=== PATIENT | female | born 1985 | race Caucasian/White ===

== ENCOUNTER 2017-06-12 07:00 | Inpatient (IN) | payer OTHER ==
[2017-06-12 08:24] LABS: BASOPHIL 0.4 % (0-2.0); EOSINOPHIL 0.4 % (0-4.5); MCH 28.5 pg (25.7-33.7); MEAN CELL VOLUME 86.6 fl (80-96); MEAN PLT VOLUME 8.6 fl (7.5-11.1); NEUTROPHILS 84.2 % (42.8-82.8); PLATELET COUNT 207 K/MM3 (134-434); RDW 18.8 % (11.6-15.6); WHITE BLOOD COUNT 11.1 K/mm3 (4.0-10.0)
--- NOTE | 2017-06-12 08:35 | HP ---
Past Medical History - Primary Care Physician PCP:: Malcolm Holder - Admission Chief Complaint: 39.1 weeks, labor History of Present Illness: 32 yo f . edc by sono 06/17/17 c/o contractions. no rom,no bleeding, cx 6 cm .80 vx -2 mi, fhr cat 1, contraction irregular History Source: Patient Limitations to Obtaining History: Language Barrier - Past Medical History ...: 2 ...Para: 1 ...Term: 1 ...LMP: 09/04/16 ... Weeks Gestation by Dates: 40.1 ...EDC by Dates: 06/11/17 ...EDC by Sono: 06/18/17 - Past Surgical History Past Surgical History: Yes: None Hx Myomectomy: No Hx Transabdominal Cerclage: No - Smoking History Smoking history: Never smoked Have you smoked in the past 12 months: No - Alcohol/Substance Use Hx Alcohol Use: No History of Substance Use: reports: None - Social History Usual Living Arrangement: Yes: With Spouse History of Recent Travel: No Home Medications - Allergies Allergies/Adverse Reactions: Allergies Allergy/AdvReac Type Severity Reaction Status Date / Time No Known Allergies Allergy Verified 05/28/17 02:19 - Home Medications Home Medications: Ambulatory Orders Vitamins (Sjr) - 1 tab PO DAILY 06/04/14 Review of Systems - Review of Systems Constitutional: reports: No Symptoms Eyes: reports: No Symptoms HENT: reports: No Symptoms Neck: reports: No Symptoms Cardiovascular: reports: No Symptoms Respiratory: reports: No Symptoms Gastrointestinal: reports: No Symptoms Genitourinary: reports: No Symptoms Breasts: reports: No Symptoms Reported Musculoskeletal: reports: No Symptoms Integumentary: reports: No Symptoms Neurological: reports: No Symptoms Endocrine: reports: No Symptoms Hematology/Lymphatic: reports: No Symptoms Psychiatric: reports: No Symptoms Physical Exam - Maternity Constitutional: Yes: Well Nourished, No Distress, Calm Eyes: Yes: WNL, Conjunctiva Clear, EOM Intact HENT: Yes: WNL, Atraumatic, Normocephalic Neck: Yes: WNL, Supple, Trachea Midline Cardiovascular: Yes: WNL, Regular Rate and Rhythm Breast(s): Yes: WNL - Abdominal Exam/OB Fundal Height: 40 Number of Fetuses: Single Presentation: Vertex Contractions: Yes Regularity: Irregular Intensity: Mod/Strong Monitor Mode: External Heart Rate Location: [facility] Category: I Accelerations: Uniform Decelerations: None - Vaginal Exam/OB Vaginal Bleediing: Bloody Show Speculum Exam: No Dilatation (cm): 6 cm Effacement (%): 80 Amniotic Membrane Status: Intact Presentation: Vertex/Position Station: -2 - Physical Exam Musculoskeletal: Yes: WNL Extremities: Yes: WNL Edema: Yes Edema: LLE: Trace, RLE: Trace Deep Tendon Reflex Grade: Normal +2 Psychiatric: Yes: WNL - Labs Lab Results: CBC, BMP 06/12/17 08:05 Hemorrhage Risk Assessment - Risk Factors Medium Risk Factors: Yes: None High Risk Factors: Yes: None Risk Score: 1 Risk Level: Medium Risk Problem List - Problems (1) 39 weeks gestation of Code(s): Z3A.39 - 39 WEEKS GESTATION OF (2) Labor established Code(s): BGC0078 - Assessment/Plan admit, fhm, ,irregular contraction, pitocin advised , rba discussed, pain management
[2017-06-12] MEDS ORDERED: PROMETHAZINE HCL 25 MG/1 ML VIAL IVPUSH ONE (08:36)
[2017-06-12] MEDS ORDERED: BUTORPHANOL TARTRATE 1 MG/ML VIAL IVPUSH ONE (08:36)
[2017-06-12 08:42] LABS: INR 0.88 (0.82-1.09); PROTHROMBIN TIME (PATIENT) 9.9 SEC (9.98-11.88)
[2017-06-12 08:43] VITALS: BMI 30.6
[2017-06-12 08:45] LABS: ACTIVATED PTT 32.4 SECONDS (26.9-34.4)
[2017-06-12] MEDS ORDERED: DEXTROSE 5%-LACTATED RINGERS 1,000 ML IV SCH (08:45)
[2017-06-12 08:48] LABS: ANION GAP 9 (8-16); CALCIUM 8.3 mg/dL (8.5-10.1); CO2 21 mmol/L (21-32); CREATININE 0.3 mg/dL (0.55-1.02); GLUCOSE,RANDOM 103 mg/dL (74-106)
[2017-06-12] MEDS ORDERED: OXYTOCIN 15 UNITS/ LR 250 ML 250 ML IVPB SCH (09:00)
[2017-06-12] MEDS ORDERED: BISACODYL 10 MG SUPP.RECT RC PRN (11:58)
[2017-06-12] MEDS ORDERED: BENZOCAINE 28 GM HEMORRHOIDAL OINTMENT TP PRN (11:58)
[2017-06-12] MEDS ORDERED: WITCH HAZEL 50% (TUCKS) 40 PAD/JAR PAD TP PRN (11:58)
[2017-06-12] MEDS ORDERED: METHYLERGONOVINE MALEATE 0.2 MG/1 ML AMP IM PRN (11:58)
[2017-06-12] MEDS ORDERED: oxyCODONE HCL 5 MG TABLET PO PRN (11:58)
[2017-06-12] MEDS ORDERED: BENZOCAINE 20% 57 GM BOTTLE TP PRN (11:58)
[2017-06-12] MEDS ORDERED: ACETAMINOPHEN 325 MG TABLET (FP) PO PRN (11:58)
[2017-06-12] MEDS ORDERED: IBUPROFEN 600 MG TABLET (FP) PO PRN (11:58)
[2017-06-12] MEDS ORDERED: D5W-LR W/ 20 UNITS OXYTOCIN 1,000 ML IV SCH (12:00)
[2017-06-12] MEDS: FERROUS SO4 325 MG TABLET (FP) PO SCH (21:29)
--- NOTE | 2017-06-13 08:12 | PN ---
Post Progress Note Type of Delivery: Vital Signs: Vital Signs Temperature 98.7 F 06/13/17 05:17 Pulse Rate 76 06/13/17 05:17 Respiratory Rate 18 06/13/17 05:17 Blood Pressure 103/59 06/13/17 05:17 O2 Sat by Pulse Oximetry (%) 100 06/12/17 12:45 Breast Exam: Yes: Soft Uterus: Yes: Fundus Firm Abdomen/GI: Yes: Abdomen soft Lochia: Yes: Rubra Lochia, amount: Small Extremities: Yes: Calves non-tender Perineum: Yes: Intact Activity: Ambulating - Labs Labs: CBC WBC 11.1 K/mm3 (4.0-10.0) H 06/12/17 08:05 RBC 4.58 M/mm3 (3.60-5.2) D 06/12/17 08:05 Hgb 13.1 GM/dL (10.7-15.3) D 06/12/17 08:05 Hct 39.6 % (32.4-45.2) D 06/12/17 08:05 MCV 86.6 fl (80-96) 06/12/17 08:05 MCH 28.5 pg (25.7-33.7) 06/12/17 08:05 MCHC 33.0 g/dl (32.0-36.0) 06/12/17 08:05 RDW 18.8 % (11.6-15.6) H D 06/12/17 08:05 Plt Count 207 K/MM3 (134-434) D 06/12/17 08:05 MPV 8.6 fl (7.5-11.1) 06/12/17 08:05 Neutrophils % 84.2 % (42.8-82.8) H 06/12/17 08:05 Lymphocytes % 9.7 % (8-40) D 06/12/17 08:05 Monocytes % 5.3 % (3.8-10.2) 06/12/17 08:05 Eosinophils % 0.4 % (0-4.5) 06/12/17 08:05 Basophils % 0.4 % (0-2.0) 06/12/17 08:05 Assessment/Plan doing well cbc reg diet oob
[2017-06-13 08:15] LABS: BASOPHIL 0.4 % (0-2.0); EOSINOPHIL 1.1 % (0-4.5); MCH 29.2 pg (25.7-33.7); MCHC 33.7 g/dl (32.0-36.0); MEAN CELL VOLUME 86.5 fl (80-96); MEAN PLT VOLUME 8.6 fl (7.5-11.1); NEUTROPHILS 76.4 % (42.8-82.8); PLATELET COUNT 183 K/MM3 (134-434); RDW 19.1 % (11.6-15.6); WHITE BLOOD COUNT 10.6 K/mm3 (4.0-10.0)
[2017-06-13] MEDS ORDERED: FLU VACC QS2017-18 36MOS UP/PF 60 MCG/0.5 ML SYRINGE IM ONE (10:00)
[2017-06-13] MEDS ORDERED: DIPHTH,PERTUSS(ACELL),TET 0.5 ML DISP.SYRIN IM ONE (10:00)
[2017-06-13] MEDS: PRENATAL VITAMINS W/ FOLIC ACID TABLET (FP) PO SCH (10:03)
[2017-06-13] MEDS: FERROUS SO4 325 MG TABLET (FP) PO SCH ×2 (10:03→21:06)
[2017-06-13] MEDS ORDERED: SENNOSIDES/DOCUSATE COMBO (SENNA PLUS) TABLET (UD) PO PRN (22:00)
[2017-06-14] MEDS: PRENATAL VITAMINS W/ FOLIC ACID TABLET (FP) PO SCH (08:59)
[2017-06-14] MEDS: FERROUS SO4 325 MG TABLET (FP) PO SCH (08:59)
[2017-06-14 09:33] VITALS: BP 105/70; PULSE 67; TEMP 98.7
== END 2017-06-14 13:00 | disposition home or self-care (01) | DRG 560 ==
LOC: JDEL 07:00 → JLDR 07:20 → J3W 13:40
PROVIDERS: ADMIT Obstetrics & Gynecology; ATTEND Obstetrics & Gynecology
PROC: 10E0XZZ Delivery of Products of Conception, External Approach (ICD-10-PCS; principal; 2017-06-12)
DX: O80 Encounter for full-term uncomplicated delivery (principal); Z3A.39 39 weeks gestation of pregnancy; Z37.0 Single live birth
CPT/HCPCS: 36415; 59409; 80048; 85025; 85610; 85730; 86593; 86850; 86900; 86901; 90686; 90715; G0008

== ENCOUNTER 2018-04-27 16:34 | Emergency (ER) | payer OTHER ==
[2018-04-27 16:43] VITALS: BP 117/77; PULSE 55; TEMP 98.7; BMI 23.6
[2018-04-27] MEDS ORDERED: DEXAMETHASONE SOD PHOSPHATE 10 MG/1 ML VIAL IM ONE (17:49)
[2018-04-27] MEDS ORDERED: DEXAMETHASONE SOD PHOSPHATE 10 MG/1 ML VIAL ONE (17:52)
--- NOTE | 2018-04-27 17:54 | PDOC ---
History of Present Illness - General Chief Complaint: Rash Stated Complaint: Rash Time Seen by Provider: 04/27/18 17:38 History Source: Patient Exam Limitations: No Limitations - History of Present Illness Initial Comments: 04/27/18 17:49 Pruritic grouped lesions noted to right upper outer arm, with appearance like poison sameera. Has been using Benadryl cream with minimal resolved. Denies fever, denies other places of outbreak, no other family member has. Denies any facial swelling tongue swelling breathing problems any signs of infection. Timing/Duration: reports: just prior to arrival, getting worse Severity: Yes: mild, moderate Location: reports: extremities (right upper arm) Respiratory Risk Factors: reports: no cause identified Modifying Factors: improves with: scratching, other (Benadryl cream) Associated Symptoms: reports: denies symptoms Past History - Travel Traveled outside of the country in the last 30 days: No Close contact w/someone who was outside of country & ill: No - Past Medical History Allergies/Adverse Reactions: Allergies Allergy/AdvReac Type Severity Reaction Status Date / Time No Known Allergies Allergy Verified 04/27/18 16:42 Home Medications: Ambulatory Orders NK [No Known Home Medication] 04/27/18 Asthma: No Cancer: No Cardiac Disorders: No COPD: No Diabetes: No HTN: No Seizures: No Thyroid Disease: No - Suicide/Smoking/Psychosocial Hx Smoking History: Never smoked Have you smoked in the past 12 months: No Hx Alcohol Use: No Drug/Substance Use Hx: No Hx Substance Use Treatment: No Review of Systems - Review of Systems Able to Perform ROS?: Yes Is the patient limited Uzbek proficient: Yes Constitutional: Yes: Symptoms Reported, See HPI, Malaise Respiratory: Yes: See HPI. No: Symptoms reported, Cough, Wheezing Musculoskeletal: Yes: Symptoms Reported Integumentary: Yes: Symptoms Reported, See HPI, Lesions Neurological: No: Symptoms reported All Other Systems: Reviewed and Negative *Physical Exam - Vital Signs Last Vital Signs Temp Pulse Resp BP Pulse Ox 98.7 F 55 L 18 117/77 99 04/27/18 16:40 04/27/18 16:40 04/27/18 16:40 04/27/18 16:40 04/27/18 16:40 - Physical Exam General Appearance: Yes: Nourished, Appropriately Dressed HEENT: positive: J[place], Normal ENT Inspection, TMs Normal, Pharynx Normal Neck: positive: Supple. negative: Lymphadenopathy (R), Lymphadenopathy (L) Respiratory/Chest: positive: Lungs Clear, Normal Breath Sounds Gastrointestinal/Abdominal: positive: Soft Integumentary: positive: Normal Color, Erythema, Rash, Swelling. 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 We'll treat with one dose of steroids and encourage continued topical creams and Benadryl *DC/Admit/Observation/Transfer Diagnosis at time of Disposition: Contact dermatitis Qualifiers: Contact dermatitis type: unspecified Contact dermatitis trigger: unspecified trigger Qualified Code(s): L25.9 - Unspecified contact dermatitis, unspecified cause - Discharge Dispostion Disposition: HOME Condition at time of disposition: Stable Decision to Admit order: No - Referrals - Patient Instructions Printed Discharge Instructions: DI for Contact Dermatitis Additional Instructions: Rest, keep cool and dry- avoid strenuous activity or hot /humid environments Less hot showers, no abrasive soaps May use heavy creams like Eucerin or Cetaphil to keep skin moist May apply Aveeno, calamine lotion, [id number] hydrocortisone creams as needed for symptoms May use Benadryl at night for antihistamine, Zyrtec/ Serina or Claritin for daytime antihistamine use to help with itching May use [id number] hydrocortisone cream on all areas except face Try to identify cause for rash and avoid exposures Followup with PMD in one week if no resolution Make appointment with retail event assistant for evaluation when possible - Post Discharge Activity
== END 2018-04-27 17:57 | disposition home or self-care (01) ==
LOC: JERFT 16:34
PROC: 3E0233Z Introduction of Anti-inflammatory into Muscle, Percutaneous Approach (ICD-10-PCS; principal; 2018-04-27)
DX: L25.9 Unspecified contact dermatitis, unspecified cause (principal)
CPT/HCPCS: 96372; 99281-25; J1100